=== PATIENT | female | born 1955 | race Caucasian/White ===

== ENCOUNTER 2018-08-13 12:33 | Emergency (ER) | payer OTHER ==
[~2018-08-13] VITALS: Ht 152.4 cm; Wt 51.7 kg
[2018-08-13 13:50] LABS: INFLUENZA A ANTIGEN None Detected (None Detect); INFLUENZA B ANTIGEN None Detected (None Detect)
[2018-08-13] MEDS ORDERED: IBUPROFEN 800800 MG PO (14:32)
[2018-08-13 14:53] VITALS: BP 106/63
== END 2018-08-13 14:53 | disposition home or self-care (01) ==
LOC: M.ERS 12:33
PROVIDERS: Personal Emergency Response Attendant
DX: E86.0 Dehydration (principal); B34.9 Viral infection, unspecified